=== PATIENT | female | born 1980 | race Caucasian/White ===

== ENCOUNTER → 2017-04-27 | Outpatient (REF) ==
[~2017-04-27] MED LIST: BENADRYL25 M2 PO; CLARITIN 1010 MG/TAB PO; COLACE 100100 MG/CAP PO; HUMALOG100 U/ML SC; LANSINOH FOR BR1 OIN TP; MOTRIN 600600 MG/TAB PO; PERCOCET 325 MG1 TA2 PO; PRENATAL1 TA7 PO; PRENTAL 1 PLUS1 TAB PO; PREPARATION H30 GM RC; SENOKOT S 50 MG1 TAB PO; VITAMIN B-1000 MCG/T PO
== END ==
LOC: WSOH 16:45
DX: Z02.89 Encounter for other administrative examinations (principal)